=== PATIENT | male | born 1955 | race Caucasian/White ===

== ENCOUNTER 2021-05-10 17:32 | Emergency (ER) | payer BC ==
[2021-05-10] MEDS: KETOROLAC 15 MG/ML 1 ML VIAL IVP STA (17:54)
[2021-05-10] MEDS: MORPHINE SULFATE 4 MG/ML SYRINGE IV STA (17:55)
[2021-05-10] MEDS: LIDOCAINE 5% PATCH TOPICAL STA (17:56)
[2021-05-10 18:03] LABS: Basophils % (A) 0 %; Eosinophils # (A) 0.2 k/uL (0-0.7); Eosinophils % (A) 1 %; HCT 47.1 % (39.0-53.0); HGB 15.8 gm/dL (13.0-17.5); Lymphocytes # (A) 1.2 k/uL (1.0-4.8); Lymphocytes % (A) 12 %; MCH 30.7 pg (25.0-35.0); MCHC 33.6 g/dL (31.0-37.0); MCV 91.5 fL (80.0-100.0); Mean Platelet Volume 7.6; Monocytes # (A) 0.6 k/uL (0-1.0); Monocytes % (A) 6 %; Neutrophils % (A) 79 %; Platelet Count 321 k/uL (150-450); RBC 5.15 m/uL (4.30-5.90); RDW 12.2 % (11.5-15.5); WBC 10.2 k/uL (3.8-10.6)
--- NOTE | 2021-05-10 18:06 | ED ---
General Adult HPI - General Chief complaint: Chest Pain Stated complaint: Chest Pain Time Seen by Provider: 05/10/21 17:41 Source: patient Mode of arrival: ambulatory Limitations: no limitations - History of Present Illness Initial comments: Dictation was produced using [employer] dictation software. please excuse any grammatical, word or spelling errors. Chief Complaint: 65-year-old male presents with 1 day of chest pain History of Present Illness: Patient is 65-year-old male he presents emergency department for chest pain. Patient states he has severe sharp right chest pain to his right anterior chest. The Past couple days she's had coughing fits. Patient states it hurts when he takes a deep breath or moves a certain position. States that sharp. Nonradiating. States that it's right below his right nipple. Does not feel he gets aching pressure to his substernal area. No associated nausea or vomiting. Patient does report from short of breath all all because of the pain. He has had some bouts of self resolved epistaxis recently. The ROS documented in this emergency department record has been reviewed and confirmed by me. Those systems with pertinent positive or negative responses have been documented in the HPI. All other systems are other negative and/or noncontributory. PHYSICAL EXAM: General Impression: Alert and oriented x3, acute distress secondary to pain HEENT: Normocephalic atraumatic, extra-ocular movements intact, pupils equal and reactive to light bilaterally, mucous membranes moist. Cardiovascular: Heart regular rate and rhythm Chest: Able to complete full sentences, no retractions, no tachypnea Abdomen: abdomen soft, non-tender, non-distended, no organomegaly Musculoskeletal: Pulses present and equal in all extremities, no peripheral edema Motor: no focal deficits noted Neurological: CN II-XII grossly intact, no focal motor or sensory deficits noted Skin: Intact with no visualized rashes Psych: Normal affect and mood ED course: 65-year-old male presents emergency department for severe right anterior chest pain. States that sharp it's very atypical for acute coronary syndrome. Vital signs upon arrival are within acceptable limits. Laboratory evaluation obtained. CBC unremarkable. Coag panel is negative. Metabolic panel is unremarkable. Troponin is negative. Coronal virus test is positive. D-dimer is 14.87. X-ray shows bilateral peripheral bronchopneumonia. Given that patient had elevated d-dimer CT angiogram of the chest was ordered showing multifocal pneumonia without any signs of pulmonary embolism. Patient reevaluated at the bedside after given analgesics with significant improvement of his chest pain. More history was obtained about patient's symptoms. He states that he did have a cough that started exactly 10 days ago. Patient is history of hypertension is not compliant with his medications. He is not vaccinated and is agreeable with monoclonal antibody infusion. Room at the bedside at 7:50 PM he is not hypoxic that requiring oxygen therapy and is well- appearing. EKG interpretation: Ventricular rate 95, normal sinus rhythm, IL interval 140, QRS 70, QTc 447. No IL prolongation, no QTC prolongation, no ST or T-wave changes noted. Overall, this EKG is unremarkable - Related Data Home Medications Medication Instructions Recorded Confirmed Acetaminophen/Diphenhydramine 1 tab PO HS PRN 05/10/21 05/10/21 [Tylenol Pm Ex-Strength Caplet] Azithromycin [Zithromax Z-pack (6 See Taper PO DIRECTED 05/10/21 05/10/21 tabs)] Codeine Phosphate/Guaifenesin 10 ml PO Q6H PRN 05/10/21 05/10/21 [Guaifen-Codeine 100-10 mg/5 ml] Allergies Allergy/AdvReac Type Severity Reaction Status Date / Time No Known Allergies Allergy Verified 05/10/21 19:19 Review of Systems ROS Statement: Those systems with pertinent positive or pertinent negative responses have been documented in the HPI. ROS Other: All systems not noted in ROS Statement are negative. Past Medical History Past Medical History: Hypertension History of Any Multi-Drug Resistant Organisms: None Reported Past Surgical History: No Surgical Hx Reported Past Psychological History: No Psychological Hx Reported Smoking Status: Current every day smoker Past Alcohol Use History: None Reported Past Drug Use History: None Reported General Exam Limitations: no limitations Course Vital Signs 05/10/21 05/10/21 17:42 18:28 Temperature 99.7 F H Pulse Rate 101 H 86 Respiratory 24 16 Rate Blood Pressure 180/116 156/96 O2 Sat by Pulse 96 96 Oximetry Medical Decision Making - Lab Data Result diagrams: 05/10/21 17:49 05/10/21 17:49 Lab Results 05/10/21 05/10/21 05/10/21 Range/Units 17:49 17:49 17:49 WBC 10.2 (3.8-10.6) k/uL RBC 5.15 (4.30-5.90) m/uL Hgb 15.8 (13.0-17.5) gm/dL Hct 47.1 (39.0-53.0) % MCV 91.5 (80.0-100.0) fL MCH 30.7 (25.0-35.0) pg MCHC 33.6 (31.0-37.0) g/dL RDW 12.2 (11.5-15.5) % Plt Count 321 (150-450) k/uL MPV 7.6 Neutrophils % 79 % Lymphocytes % 12 % Monocytes % 6 % Eosinophils % 1 % Basophils % 0 % Neutrophils # 8.0 H (1.3-7.7) k/uL Lymphocytes # 1.2 (1.0-4.8) k/uL Monocytes # 0.6 (0-1.0) k/uL Eosinophils # 0.2 (0-0.7) k/uL Basophils # 0.0 (0-0.2) k/uL PT 10.4 (9.0-12.0) sec INR 1.0 (<1.2) APTT 21.4 L (22.0-30.0) sec D-Dimer 14.87 H (<0.60) mg/L FEU Sodium 139 (137-145) mmol/L Potassium 4.7 (3.5-5.1) mmol/L Chloride 105 (98-107) mmol/L Carbon Dioxide 23 (22-30) mmol/L Anion Gap 11 mmol/L BUN 17 (9-20) mg/dL Creatinine 0.68 (0.66-1.25) mg/dL Est GFR (CKD-EPI)AfAm >90 (>60 ml/min/1.73 sqM) Est GFR (CKD-EPI)NonAf >90 (>60 ml/min/1.73 sqM) Glucose 115 H (74-99) mg/dL Calcium 8.7 (8.4-10.2) mg/dL Troponin I (0.000-0.034) ng/mL Coronavirus (PCR) (Not Detectd) 05/10/21 05/10/21 Range/Units 17:49 18:30 WBC (3.8-10.6) k/uL RBC (4.30-5.90) m/uL Hgb (13.0-17.5) gm/dL Hct (39.0-53.0) % MCV (80.0-100.0) fL MCH (25.0-35.0) pg MCHC (31.0-37.0) g/dL RDW (11.5-15.5) % Plt Count (150-450) k/uL MPV Neutrophils % % Lymphocytes % % Monocytes % % Eosinophils % % Basophils % % Neutrophils # (1.3-7.7) k/uL Lymphocytes # (1.0-4.8) k/uL Monocytes # (0-1.0) k/uL Eosinophils # (0-0.7) k/uL Basophils # (0-0.2) k/uL PT (9.0-12.0) sec INR (<1.2) APTT (22.0-30.0) sec D-Dimer (<0.60) mg/L FEU Sodium (137-145) mmol/L Potassium (3.5-5.1) mmol/L Chloride (98-107) mmol/L Carbon Dioxide (22-30) mmol/L Anion Gap mmol/L BUN (9-20) mg/dL Creatinine (0.66-1.25) mg/dL Est GFR (CKD-EPI)AfAm (>60 ml/min/1.73 sqM) Est GFR (CKD-EPI)NonAf (>60 ml/min/1.73 sqM) Glucose (74-99) mg/dL Calcium (8.4-10.2) mg/dL Troponin I <0.012 (0.000-0.034) ng/mL Coronavirus (PCR) Detected A (Not Detectd) Disposition Clinical Impression: Coronavirus infection Disposition: HOME SELF-CARE Condition: Fair Instructions (If sedation given, give patient instructions): Coronavirus Disease 2019 (COVID-19) Is patient prescribed a controlled substance at d/c from ED?: No Referrals: Nonstaff,Physician [REFERRING] - 1-2 days
[2021-05-10 18:16] LABS: African American GFR (CKD) >90 (>60 ml/min/1.73 sqM); Anion Gap 11 mmol/L; Blood Urea Nitrogen 17 mg/dL (9-20); Calcium 8.7 mg/dL (8.4-10.2); Carbon Dioxide 23 mmol/L (22-30); Chloride 105 mmol/L (98-107); Glucose 115 mg/dL (74-99); Non-African American GFR(CKD) >90 (>60 ml/min/1.73 sqM); Sodium 139 mmol/L (137-145)
[2021-05-10 18:17] LABS: Potassium 4.7 mmol/L (3.5-5.1)
--- NOTE | 2021-05-10 18:22 | XR ---
EXAMINATION TYPE: XR chest 1V portable DATE OF EXAM: 05/10/2021 COMPARISON: NONE HISTORY: Chest pain TECHNIQUE: Single view FINDINGS: There is some patchy peripheral pulmonary airspace infiltrates. Heart size is normal. There is no heart failure. There are chest leads. Costophrenic angles are clear. IMPRESSION: Bilateral peripheral bronchopneumonia. Normal heart.
[2021-05-10 18:27] LABS: Partial Thromboplastin Time 21.4 sec (22.0-30.0); Prothrombin Time 10.4 sec (9.0-12.0)
--- NOTE | 2021-05-10 19:41 | CT ---
EXAMINATION TYPE: CT angio chest DATE OF EXAM: 05/10/2021 COMPARISON: None HISTORY: Chest pain, elevated d-dimer. CT DLP: 479.5 mGycm Automated exposure control for dose reduction was used. CONTRAST: Performed with IV Contrast, patient injected with 100 mL of Isovue 370. Images obtained from the thoracic inlet to the diaphragm with IV contrast. There are 3-D post process ed images. There is moderate patchy pulmonary airspace infiltrates in the upper and lower lobes bilaterally. Hea rt size is fairly normal. There is no pericardial effusion. There is no pleural effusion. Upper abdom inal soft tissues are intact. There are no hilar masses. There is no mediastinal adenopathy. Thoracic aorta is intact. There is no aneurysm or dissection. There is normal contrast opacification of the pulmonary arteries. There are no filling defects. Thoracic spine is intact. There is no compression fracture. Sternum is intact. IMPRESSION: No evidence of pulmonary embolism. Multifocal pneumonia.
[2021-05-10 20:42] VITALS: RESP 18
[2021-05-10] MEDS: BAMLANIVIMAB (EUA) 700 MG, ETESEVIMAB (EUA) 1,400 MG in SODIUM CHLORIDE 0.9% 100 ML IVPB ONE (20:42)
[2021-05-10] MEDS: SODIUM CHLORIDE 0.9% 50 ML IVPB ONE (20:43)
[2021-05-10 22:27] VITALS: BP 146/95; PULSE 79; TEMP 98.1
== END 2021-05-10 22:20 | disposition home or self-care (01) ==
LOC: EC 17:32
DX: U07.1 COVID-19 (principal); I10 Essential (primary) hypertension; F17.200 Nicotine dependence, unspecified, uncomplicated
CPT/HCPCS: 36415; 93005; 85379; 80048; 84484; 85025; 85610; 85730; 87635; 71045; 71275; 99285; 96374; 96375; J2270; J1885; Q9967; J3490